=== PATIENT | female | born 1990 | race Caucasian/White ===

== ENCOUNTER → 2017-01-11 | Outpatient (CLI) | payer BC | END | disposition disaster alternative care site (69) | LOC: GLAB 01-10 16:20 | DX: Z31.41 Encounter for fertility testing (principal) ==

== ENCOUNTER → 2017-06-08 | Outpatient (CLI) | payer BC | END | disposition disaster alternative care site (69) | LOC: GLAB 07:04 | DX: Z31.83 Encounter for assisted reproductive fertility procedure cycle (principal) ==

== ENCOUNTER → 2017-07-11 | Outpatient (CLI) | payer BC | END | disposition disaster alternative care site (69) | LOC: GLAB 07:52 | DX: Z32.00 Encounter for pregnancy test, result unknown (principal) ==

== ENCOUNTER → 2017-07-13 | Outpatient (CLI) | payer BC | END | disposition disaster alternative care site (69) | LOC: GLAB 07-12 08:00 | DX: Z32.00 Encounter for pregnancy test, result unknown (principal) ==